=== PATIENT | female | born 1995 | race Caucasian/White ===

== ENCOUNTER 2016-12-05 13:16 | Emergency (ER) | payer OTHER ==
[~2016-12-05] VITALS: Ht 149.9 cm; Wt 81.2 kg
--- NOTE | ~2016-12-05 | EKG ---
[place] [address] [facility] [place] [address] ELECTROCARDIOGRAM REPORT Name: BRIDGETT DAVISON [id number] Admission: 12/05/16 Attend Phys: Discharge: 12/05/16 Date of : [birth year] Report #: [id number] THIS REPORT FOR: //name// [facility] ED Test Date: 2016-12-05 Test Time: 13:31:43 Pat Name: BRIDGETT DAVISON Department: Room: Gender: F Crutch Maker: linda : 1995 Requested By: Alex Pulliam Order Number: [id number] MD: Kevin Davis Measurements Intervals [place] Rate: 105 P: 65 ID: 140 QRS: 13 QRSD: 93 T: -17 QT: 344 QTc: 455 Interpretive Statements Sinus tachycardia Low voltage, precordial leads Borderline T abnormalities, diffuse leads No previous ECG available for comparison Electronically Signed On 12-06-2016 9:01:23 CDT by Kevin Davis [email or web address] <ELECTRONICALLY SIGNED> By: Kevin Davis MD, [facility] 12/06/16 0901 1331 1331 Kevin Davis MD, FACC /EPI
[2016-12-05 13:52] LABS: ABSOLUTE NEUTROPHILS 7.9 thou/uL (1.4-8.2); BASOPHILS 0.5 % (0.0-2.0); EOSINOPHILS 0.5 % (0.0-3.0); HEMATOCRIT 39.8 % (37.0-47.0); HEMOGLOBIN 13.4 gm/dL (12.0-15.0); LYMPHOCYTES 24.8 % (24.0-44.0); MCH 27.7 pg (26.0-34.0); MCHC 33.7 g/dL (28.0-37.0); MCV 82.1 fL (80.0-100.0); MONOCYTES 5.4 % (1.0-8.0); PLATELET COUNT 277 thou/uL (150-400); POLYS 68.8 % (36.0-66.0); RBC 4.84 mil/uL (4.20-5.00); WBC 11.4 thou/uL (4.0-11.0)
[2016-12-05 13:56] LABS: MANUAL DIFF NO
[2016-12-05 14:02] LABS: ANION GAP 10 mmol/L (7-16); BUN 11 mg/dL (7-18); CALCIUM 9.2 mg/dL (8.5-10.1); CHLORIDE 105 mmol/L (98-107); CO2 26 mmol/L (21-32); CREATININE 0.9 mg/dL (0.6-1.0); GLUCOSE 108 mg/dL (74-106); POTASSIUM 3.4 mmol/L (3.5-5.1); SODIUM 141 mmol/L (136-145)
[2016-12-05 14:10] LABS: TROPONIN-I < 0.04 ng/mL (<0.04-0.07)
[2016-12-05] MEDS ORDERED: NEURONTIN600 MG PO (15:32)
[2016-12-05 16:21] VITALS: BP 112/81
== END 2016-12-05 16:22 | disposition home or self-care (01) ==
LOC: ER 13:16
PROVIDERS: Emergency Medicine
DX: R04.2 Hemoptysis (principal); R07.89 Other chest pain; R09.1 Pleurisy; Z95.0 Presence of cardiac pacemaker; Z88.8 Allergy status to other drugs, medicaments and biological substances